=== PATIENT | male | born 1990 | race African-American/Black ===

== ENCOUNTER 2016-09-14 16:53 | Emergency (ER) | payer OTHER ==
[~2016-09-14 16:53] MED LIST: BAYER CHEWABLE81 MG PO; COGENTIN2 MG PO/SL; RISPERDAL4 M1 PO
[2016-09-14 17:31] LABS: AMPHETAMINE NEG (NEG); BARBITURATES NEG (NEG); BENZODIAZEPINES NEG (NEG); COCAINE NEG (NEG); MARIJUANA POS (NEG); OPIATES NEG (NEG); TRICYCLIC ANTIDEPRESSANTS NEG (NEG); U METHADONE NEG (NEG)
== END 2016-09-14 21:18 | disposition home or self-care (01) ==
LOC: CED 16:53
PROVIDERS: Emergency Medicine
DX: F12.10 Cannabis abuse, uncomplicated (principal); F17.200 Nicotine dependence, unspecified, uncomplicated
CPT/HCPCS: 36415; 80307; 99283; G0480